=== PATIENT | female | born 1960 | race Caucasian/White ===

== ENCOUNTER 2016-06-22 13:38 | Emergency (ER) | payer OTHER ==
[~2016-06-22 13:38] MED LIST: ASPIRIN325 MG PO; GLUCOVANCE 5-51 EACH PO; HUMALOG MI100 UNIT/4 SQ; LANTUS100 UNIT/1 SQ; LISINOPRIL40 MG PO; NEURONTIN300 MG PO; NITROSTAT0.4 MG SL; ZOCOR40 MG PO
== END 2016-06-22 15:28 | disposition home or self-care (01) ==
LOC: ER 13:38
DX: N39.0 Urinary tract infection, site not specified (principal); E10.9 Type 1 diabetes mellitus without complications; I10 Essential (primary) hypertension; J45.909 Unspecified asthma, uncomplicated; Z88.1 Allergy status to other antibiotic agents; Z88.2 Allergy status to sulfonamides; Z88.8 Allergy status to other drugs, medicaments and biological substances; Z79.82 Long term (current) use of aspirin; Z79.899 Other long term (current) drug therapy
CPT/HCPCS: 36415